=== PATIENT | male | born 1955 | race Caucasian/White ===

== ENCOUNTER → 2020-01-04 | Outpatient (CLI) | payer OTHER ==
[~2020-01-04] MED LIST: AMLO2.5T5 PO; ATOR10TA9 PO; CHOL500045 PO; HYDR-3240 PO; LEVO50TA5 PO; LISI40TA PO
== END | disposition home or self-care (01) ==
LOC: CVU 14:06
PROVIDERS: ATTEND Family Medicine
DX: I11.9 Hypertensive heart disease without heart failure (principal); R01.1 Cardiac murmur, unspecified
CPT/HCPCS: 93306